=== PATIENT | male | born 1995 | race Caucasian/White ===

== ENCOUNTER → 2020-12-05 | Emergency (ER) | payer SELFPAY ==
[~2020-12-05] VITALS: Ht 177.8 cm; Wt 74.8 kg
[~2020-12-05] MED LIST: NALO4SPR NS
--- NOTE | 2020-12-05 18:16 | NUR ---
REGINO Oconnor FROM OUTSIDE APARTMENT COMPLEX FOR POSSIBLE OD, PATIENT STATES THAT HE ONLY TOOK XANAX X 1 D/T DEPRESSION SINCE HIS PARENTS IS NOW IN THE PROCESS OF DIVORCE. DENIES ANY COMPLAINT OR DISCOMFORT. STEVEN GARCIA AT FOR EVAL.
--- NOTE | 2020-12-05 18:17 | NUR ---
PATIENT ALSO DENIES SI/HI.
--- NOTE | 2020-12-05 18:31 | NUR ---
IV removed. Catheter intact and site benign. Pressure and 4x4 applied to site. No bleeding noted. Patient discharged to home in stable condition. Written and verbal after care instructions given. Patient verbalizes understanding of instruction.
[2020-12-05 18:35] VITALS: BP 135/83
--- NOTE | 2020-12-05 18:36 | NUR ---
UNABLE TO DEPART D/T "DEPART PATIENT" BUTTON IS INACTIVE.
== END | disposition home or self-care (01) ==
LOC: ER 18:45
DX: F13.10 Sedative, hypnotic or anxiolytic abuse, uncomplicated (principal); F41.9 Anxiety disorder, unspecified